=== PATIENT | female | born 1975 | race Caucasian/White ===

== ENCOUNTER → 2017-11-29 | Outpatient (CLI) | payer OTHER ==
--- NOTE | 2017-11-29 09:35 | RAD ---
Right knee radiograph November 29, 2017 INDICATION: Right knee pain. No known injury. COMPARISON: None available. TECHNIQUE: 2 views of the right knee are provided. FINDINGS: There is no acute fracture or dislocation. There is no knee joint effusion. Bone mineralization is within normal limits. Joint spaces are maintained. Mild lateral femorotibial and patellofemoral osteophytosis. Regional soft tissues are within normal limits. There is no soft tissue gas or osseous erosion. IMPRESSION: No acute fracture or dislocation. Mild lateral femorotibial and patellofemoral marginal osteophytosis. Electronically signed by: Margaux Trevizo MD (11/29/2017 9:31 AM) [id number]
== END | disposition home or self-care (01) ==
LOC: PMG 09:08
PROVIDERS: ATTEND Physician Assistant
DX: M25.561 Pain in right knee (principal)
CPT/HCPCS: 73560

== ENCOUNTER 2019-11-22 10:16 | Emergency (ER) | payer OTHER ==
[~2019-11-22] VITALS: Ht 165.1 cm; Wt 108.6 kg
[2019-11-22] MEDS ORDERED: IV NORMAL SALINE 1,000ML 1,000 ML IV ONE ×2 (10:30→11:45)
[2019-11-22] MEDS ORDERED: KETOROLAC 15 MG/ML VIAL. IVP ONE (10:45)
[2019-11-22] MEDS ORDERED: FAMOTIDINE 20 MG/2 ML VIAL IVP ONE (10:45)
[2019-11-22] MEDS ORDERED: ONDANSETRON PF 4 MG/2 ML VIAL. IVP ONE (10:45)
[2019-11-22 10:46] VITALS: BP 121/76
[2019-11-22 10:58] LABS: BASO % 0 % (0-3); EOS % 0 % (0-3); HEMATOCRIT 43.5 % (36.0-47.0); HEMOGLOBIN 13.6 g/dL (12.0-15.5); LYMPH # 0.7 x10^3/uL (1.0-4.8); LYMPH % 7 % (24-48); MEAN CORPUSCULAR HEMOGLOBIN 23 pg (25-35); MEAN CORPUSCULAR HGB CONC 31 g/dL (31-37); MEAN CORPUSCULAR VOLUME 73 fL (79-100); MONO # 0.9 x10^3/uL (0.0-1.1); MONO % 8 % (0-9); NEUT # 9.2 x10^3uL (1.8-7.7); NEUT % 85 % (31-73); PLATELET COUNT 353 x10^3/uL (140-400); RED BLOOD COUNT 5.94 x10^6/uL (3.50-5.40); RED CELL DISTRIBUTION WIDTH 17.5 % (11.5-14.5); WHITE BLOOD COUNT 10.9 x10^3/uL (4.0-11.0)
[2019-11-22 11:25] LABS: CALCIUM 9.9 mg/dL (8.5-10.1); CREATININE 1.9 mg/dL (0.6-1.0); GFR 28.9; POTASSIUM 3.6 mmol/L (3.5-5.1)
[2019-11-22 11:35] LABS: PREG TEST PT QUAL NEGATIVE (NEG)
[2019-11-22 11:39] LABS: ALBUMIN/GLOBULIN RATIO 0.7 (1.0-1.7); MAGNESIUM 1.9 mg/dL (1.8-2.4); TOTAL BILIRUBIN 0.4 mg/dL (0.2-1.0); TOTAL PROTEIN 9.4 g/dL (6.4-8.2)
[2019-11-22 12:20] LABS: ANISOCYTOSIS SLIGHT; HYPOCHROMIA PRESENT; PLT ESTIMATE ADEQUATE (ADEQUATE)
[2019-11-22] MEDS ORDERED: ONDA4TAB12 PO (12:51)
--- NOTE | 2019-11-22 12:51 | PHYS DOC ---
Past History Past Medical History: No Pertinent History Past Surgical History: Cholecystectomy, Gastric Bypass Smoking: Non-smoker Alcohol Use: Occasionally Drug Use: None General Adult EDM: Chief Complaint: DIARRHEA HPI: HPI: 44 year old female presents with history of diarrhea x 5 days. Reports some associated nausea. Denies fever/chills. Reports recent travel and history of drinking "well water". Patient denies known sick contacts. Reports she was recently elevated at Urgent Care who performed stool studies due to concern for possible parasitic infection. Reports she was sent to ED for IVF hydration due to concern for dehydration. Patient denies abdominal pain. Denies hematochezia or melena. Reports some dizziness. Denies chest pain or SOA. Denies cough. Denies known exposure to COVID-19. Review of Systems: Review of Systems: Constitutional: Denies fever or chills Eyes: Denies change in visual acuity, redness, or eye pain HENT: Denies nasal congestion or sore throat Respiratory: Denies cough or shortness of breath Cardiovascular: Denies chest pain or palpitations GI: Denies abdominal pain or vomiting; reports diarrhea and nausea : Denies dysuria or hematuria Musculoskeletal: Denies back pain or joint pain Integument: Denies rash or skin lesions Neurologic: Denies headache, focal weakness or sensory changes; reports dizziness Complete systems were reviewed and found to be within normal limits, except as documented in this note. Current Medications: Current Meds: Current Medications Medications (Trade) Dose Ordered Sig/Song Start Time Stop Time Status Last Admin Dose Admin Famotidine (Pepcid Vial) 20 mg 1X ONCE 11/22/19 10:45 11/22/19 10:52 DC 11/22/19 11:04 20 MG Ketorolac Tromethamine (Toradol 15mg Vial) 15 mg 1X ONCE 11/22/19 10:45 11/22/19 10:52 DC 11/22/19 10:45 15 MG Ondansetron HCl (Zofran) 4 mg 1X ONCE 11/22/19 10:45 11/22/19 10:52 DC 11/22/19 11:04 4 MG Sodium Chloride 1,000 ml @ 1,000 mls/hr 1X ONCE 11/22/19 11:45 11/22/19 12:44 DC 11/22/19 11:42 1,000 MLS/HR Allergies: Allergies: Allergies Coded Allergies Type Severity Reaction Last Updated Verified No Known Drug Allergies 11/22/19 No Physical Exam: PE: Constitutional: Well developed, well nourished, no acute distress, non-toxic appearance HENT: Normocephalic, atraumatic Eyes: Conjunctiva normal, no discharge Neck: Normal range of motion, supple Lungs & Thorax: Equal chest rise and fall, no respiratory distress Abdomen: Soft, no tenderness, no guarding/rebound tenderness/distention Skin: Warm, dry, no erythema, no rash Extremities: No tenderness, ROM intact, no edema Neurologic: Alert and oriented X 3, no focal deficits noted Psychologic: Affect normal, judgement normal Current Patient Data: Labs: Laboratory Tests Test 11/22/19 10:33 White Blood Count 10.9 x10^3/uL (4.0-11.0) Red Blood Count 5.94 x10^6/uL (3.50-5.40) H Hemoglobin 13.6 g/dL (12.0-15.5) Hematocrit 43.5 % (36.0-47.0) Mean Corpuscular Volume 73 fL (79-100) L Mean Corpuscular Hemoglobin 23 pg (25-35) L Mean Corpuscular Hemoglobin Concent 31 g/dL (31-37) Red Cell Distribution Width 17.5 % (11.5-14.5) H Platelet Count 353 x10^3/uL (140-400) Neutrophils (%) (Auto) 85 % (31-73) H Lymphocytes (%) (Auto) 7 % (24-48) L Monocytes (%) (Auto) 8 % (0-9) Eosinophils (%) (Auto) 0 % (0-3) Basophils (%) (Auto) 0 % (0-3) Neutrophils # (Auto) 9.2 x10^3uL (1.8-7.7) H Lymphocytes # (Auto) 0.7 x10^3/uL (1.0-4.8) L Monocytes # (Auto) 0.9 x10^3/uL (0.0-1.1) Eosinophils # (Auto) 0.0 x10^3/uL (0.0-0.7) Basophils # (Auto) 0.0 x10^3/uL (0.0-0.2) Platelet Estimate Adequate (ADEQUATE) Hypochromasia Present Anisocytosis Slight Sodium Level 137 mmol/L (136-145) Potassium Level 3.6 mmol/L (3.5-5.1) Chloride Level 99 mmol/L (98-107) Carbon Dioxide Level 24 mmol/L (21-32) Anion Gap 14 (6-14) Blood Urea Nitrogen 11 mg/dL (7-20) Creatinine 1.9 mg/dL (0.6-1.0) H Estimated GFR (Cockcroft-Gault) 28.9 BUN/Creatinine Ratio 6 (6-20) Glucose Level 169 mg/dL (70-99) H Calcium Level 9.9 mg/dL (8.5-10.1) Magnesium Level 1.9 mg/dL (1.8-2.4) Total Bilirubin 0.4 mg/dL (0.2-1.0) Aspartate Amino Transferase (AST) 15 U/L (15-37) Alanine Aminotransferase (ALT) 20 U/L (14-59) Alkaline Phosphatase 88 U/L (46-116) Total Protein 9.4 g/dL (6.4-8.2) H Albumin 4.0 g/dL (3.4-5.0) Albumin/Globulin Ratio 0.7 (1.0-1.7) L Lipase 121 U/L (73-393) Serum Test, Qualitative Negative (NEG) Vital Signs: Vital Signs Date Time Temp Pulse Resp B/P (MAP) Pulse Ox O2 Delivery O2 Flow Rate FiO2 11/22/19 10:46 97.9 118 26 121/76 (91) 99.0 EKG: EKG: [] Radiology/Procedures: Radiology/Procedures: [] Course & Med Decision Making: Course & Med Decision Making Pertinent Lab studies reviewed. (See chart for details) Patient presents with report of several day history of diarrhea. Reports was recently seen at urgent care who sent patient to ED for further evaluation and treatment with concern for dehydration. Reports stool studies pending from urgent care. Abdomen non-peritoneal. Labs obtained and posted to chart. Creatinine elevated. Patient unsure what her baseline creatinine is. IVF hydration given. Patient stable for discharge home with outpatient follow-up with PCP/GI. GI referral provided. Discussed findings and plan with patient, who acknowledges understanding and agreement. Pallavi Disclaimer: Pallavi Disclaimer: This electronic medical record was generated, in whole or in part, using a voice recognition dictation system. Departure Departure: Impression: Primary Impression: Dehydration Additional Impressions: Diarrhea Qualified Codes: R19.7 - Diarrhea, unspecified Nausea Renal insufficiency Disposition: HOME/RESIDENCE PRIOR TO ADM Condition: STABLE Referrals: STEVE FRITZ (PCP) PEDRO MOURA MD Patient Instructions: Chronic Renal Insufficiency, Dehydration, Adult, Easy-to- Read, Diarrhea, [id number], Diet for Diarrhea, Adult, Nausea, Adult, [id number] Additional Instructions: Please have your doctor recheck your renal function. Today your Creatinine was 1.9 with BUN at 11. Scripts Ondansetron (ONDANSETRON ODT) 4 Mg Tab.rapdis 1 TAB PO PRN Q6-8HRS PRN for NAUSEA, #16 TAB Prov: REINIER DUMAS DO 11/22/19 Justification of Admission: Justification of Admission: Justification of Admission Dx: N/A REINIER DUMAS DO Nov 22, 2019 12:51
[2019-11-22 12:56] LABS: BACTERIA,URINE FEW /HPF (0-FEW); BILIRUBIN,URINE NEG (NEG); CLARITY,URINE CLEAR; COLOR,URINE YELLOW; GLUCOSE,URINE NEG (NEG); NITRITE,URINE NEG (NEG); RBC,URINE 0 /HPF (0-2)
[2019-11-22 12:57] LABS: HYALINE CASTS, URINE MOD /HPF; SQUAMOUS EPITHELIAL CELL,UR OCC /LPF
== END 2019-11-22 13:09 | disposition home or self-care (01) ==
LOC: ER 10:16
DX: E86.0 Dehydration (principal); R19.7 Diarrhea, unspecified; N28.9 Disorder of kidney and ureter, unspecified; R11.0 Nausea; Z98.84 Bariatric surgery status
CPT/HCPCS: 36415; 80053; 81001; 83690; 83735; 84703; 85025; 96361; 96374; 96375; 99284; J1885; J2405; J3490; J7030